=== PATIENT | female | born 1995 | race Caucasian/White ===

== ENCOUNTER 2021-09-16 06:30 | Day surgery (SDC) | payer SELFPAY ==
[2021-09-14 15:40] VITALS: BMI 32.3
[2021-09-16 07:40] VITALS: BP 128/74; PULSE 68; TEMP 98
== END 2021-09-16 09:30 | disposition home or self-care (01) ==
LOC: FASU 06:30
PROVIDERS: ATTEND Surgery
PROC: 0J083ZZ Alteration of Abdomen Subcutaneous Tissue and Fascia, Percutaneous Approach (ICD-10-PCS; principal; 2021-09-16)
PROC: 0J0M3ZZ Alteration of Left Upper Leg Subcutaneous Tissue and Fascia, Percutaneous Approach (ICD-10-PCS; 2021-09-16)
PROC: 0J0L3ZZ Alteration of Right Upper Leg Subcutaneous Tissue and Fascia, Percutaneous Approach (ICD-10-PCS; 2021-09-16)
DX: Z53.09 Procedure and treatment not carried out because of other contraindication (principal); Z41.1 Encounter for cosmetic surgery
CPT/HCPCS: 81025

== ENCOUNTER 2021-10-07 06:27 | Day surgery (SDC) | payer SELFPAY ==
[2021-10-04 12:13] VITALS: BMI 32.3
[2021-10-07] MEDS ORDERED: EPINEPHrine/PF 1 MG/1 ML (1:1,000) AMPULE ONE (07:15)
[2021-10-07] MEDS ORDERED: LIDOCAINE HCL 1%, 10 MG/ML (20ML VIAL) ONE ×2 (07:15→08:01)
[2021-10-07] MEDS ORDERED: BACITRACIN 15 GM TUBE TOPICAL OINTMENT ONE ×2 (07:15→11:45)
[2021-10-07] MEDS ORDERED: GUM MASTIC/STORAX/MSAL/ALCOHOL 1 DRP DROPSBTL MC ONE (07:16)
[2021-10-07] MEDS ORDERED: MIDAZOLAM HCL 2 MG/2 ML SINGLE DOSE VIAL ONE ×2 (08:22→09:05)
[2021-10-07] MEDS ORDERED: fentaNYL CITRATE 250 MCG/5 ML VIAL ONE (08:50)
[2021-10-07] MEDS ORDERED: ROCURONIUM BROMIDE 50 MG/5 ML SYRINGE ONE ×2 (08:51→10:00)
[2021-10-07] MEDS ORDERED: ONDANSETRON 4 MG/2 ML VIAL ONE (08:51)
[2021-10-07] MEDS ORDERED: DEXAMETHASONE SOD PHOSPHATE 4 MG/1 ML VIAL ONE (08:51)
[2021-10-07] MEDS ORDERED: PROPOFOL 20 ML ONE (08:51)
[2021-10-07] MEDS ORDERED: ceFAZolin SODIUM 1 GM VIAL ONE ×2 (08:51)
[2021-10-07] MEDS ORDERED: HYDROmorphone HCL/PF 1 MG/ML VIAL ONE (09:59)
[2021-10-07] MEDS ORDERED: BACITRACIN 15 GM TUBE TOPICAL OINTMENT TP ONE (10:50)
[2021-10-07] MEDS ORDERED: NEOSTIGMINE METHYLSULFATE 0.5 MG/1 ML - 10 ML MDV ONE ×2 (11:57)
[2021-10-07] MEDS ORDERED: GLYCOPYRROLATE 0.2 MG/1 ML VIAL ONE (11:57)
[2021-10-07] MEDS ORDERED: oxyCODONE HCL 5 MG TABLET PO PRN (12:35)
[2021-10-07] MEDS ORDERED: ONDANSETRON 4 MG/2 ML VIAL IVPUSH PRN (12:35)
[2021-10-07] MEDS ORDERED: LACTATED RINGERS SOLUTION 1,000 ML IV SCH (12:45)
[2021-10-07] MEDS ORDERED: ENOXAPARIN NA (PORCINE) 40 MG/0.4 ML DISP.SYRIN SQ ONE ×2 (13:00→13:51)
[2021-10-07 14:17] VITALS: TEMP 97.9
[2021-10-07] MEDS ORDERED: oxyCODONE HCL 5 MG TABLET ONE (14:42)
[2021-10-07 15:43] VITALS: BP 125/70; PULSE 92
== END 2021-10-07 15:43 | disposition home or self-care (01) ==
LOC: FASU 06:27
PROVIDERS: ATTEND Surgery
CPT/HCPCS: 81025; 94760